=== PATIENT | female | born 1930 | race Caucasian/White ===

== ENCOUNTER 2017-07-04 14:26 | Inpatient (IN) | payer MEDICARE ==
[~2017-07-04] VITALS: Ht 167.6 cm; Wt 49.6 kg
[~2017-07-04 14:26] MED LIST: BRIM5DRO2 EACHEYE; CALC-500 PO; LATA2.5D3 EACHEYE; LEVO25TA4 PO; METO25TA35 PO; MULT-257 PO; POLY17PO3 PO; POTA99TA24 PO; WARF2TAB PO
[2017-07-04] MEDS ORDERED: LORazepam 2 MG/ML, 1ML ONE (14:32)
[2017-07-04 14:59] LABS: BASOPHILS # (AUTO) 0.02 x10^3/uL (0-0.1); BASOPHILS % (AUTO) 0 % (0-1); EOSINOPHILS # (AUTO) 0.01 x10^3/uL (0-0.4); EOSINOPHILS % (AUTO) 0 % (1-7); LYMPHOCYTES # (AUTO) 1.83 x10^3/uL (1-3.4); LYMPHOCYTES % (AUTO) 27 % (22-44); MD NO; MEAN CORPUSCULAR HEMOGLOBIN 27.8 pg (27.0-34.8); MEAN CORPUSCULAR HGB CONC 32.8 g/dL (32.4-35.8); MEAN CORPUSCULAR VOLUME 84.7 fL (80-100); MEAN PLATELET VOLUME 8.2 fL (7.4-10.4); MONOCYTES # (AUTO) 0.42 x10^3/uL (0.2-0.8); MONOCYTES % (AUTO) 6 % (2-9); NEUTROPHILS # (AUTO) 4.62 x10^3/uL (1.8-6.8); NEUTROPHILS % (AUTO) 67 % (42-75); PLATELET COUNT 234 x10^3/uL (130-400); RED BLOOD COUNT 5.05 x10^6/uL (3.82-5.3); RED CELL DISTRIBUTION WIDTH 19.2 % (9.6-15.2)
[2017-07-04] MEDS ORDERED: LORazepam 2 MG/ML, 1ML IVPush PRN (15:00)
[2017-07-04 15:10] LABS: INTERNATIONAL NORMALIZED RATIO 1.07 (0.93-1.1)
[2017-07-04] MEDS ORDERED: CALC1TAB PO (15:10)
[2017-07-04] MEDS ORDERED: APIX2.5T PO (15:11)
[2017-07-04 15:12] LABS: ALBUMIN 3.1 g/dL (3.4-5.0); ANION GAP 8 mmol/L (5-15); CALCIUM 9.1 mg/dL (8.5-10.1); CHLORIDE 108 mmol/L (98-107)
[2017-07-04] MEDS ORDERED: LACT-23 PO (15:12)
[2017-07-04 15:19] LABS: ALANINE AMINOTRANSFERASE 13 U/L (12-78); ALKALINE PHOSPHATASE 63 U/L (45-117); BILIRUBIN,TOTAL 0.8 mg/dL (0.2-1.0); CREATININE 0.76 mg/dL (0.55-1.02); TOTAL PROTEIN 7.6 g/dL (6.4-8.2); TROPONIN I < 0.015 ng/mL (0.000-0.045)
[2017-07-04] MEDS ORDERED: METO-282 PO (15:19)
[2017-07-04] MEDS ORDERED: POLY17PO5 PO (15:20)
[2017-07-04] MEDS ORDERED: MULT-308 PO (15:21)
[2017-07-04] MEDS ORDERED: BENZ-17 PO (15:55)
[2017-07-04] MEDS ORDERED: MECL12.52 PO (15:56)
[2017-07-04] MEDS ORDERED: OXYC-302 PO (15:57)
[2017-07-04] MEDS ORDERED: MAGN400O7 PO (15:57)
[2017-07-04] MEDS ORDERED: TEMA7.5C PO (15:59)
[2017-07-04] MEDS ORDERED: ACET325T14 PO (15:59)
[2017-07-04] MEDS ORDERED: ATROPINE 0.4 MG/ML, 1ML IVPush ONE (16:00)
[2017-07-04] MEDS ORDERED: SODIUM CHLORIDE 0.9% 1,000 ML IV SCH (16:35)
[2017-07-04] MEDS ORDERED: POLYETHYLENE GLYCOL 17 GM PACKET PO PRN (17:00)
[2017-07-04] MEDS ORDERED: BISACODYL 10 MG SUPP PR PRN (17:00)
[2017-07-04] MEDS ORDERED: DOCUSATE 100 MG CAPSULE PO PRN (17:00)
[2017-07-04] MEDS ORDERED: ACETAMINOPHEN 325 MG TABLET PO PRN (17:00)
[2017-07-04] MEDS ORDERED: ONDANSETRON 2MG/ML, 2ML IVPush PRN (17:00)
[2017-07-04] MEDS ORDERED: ONDANSETRON ODT 4 MG PO PRN (17:00)
[2017-07-04 17:34] LABS: THYROID STIMULATING HORMONE 2.55 mIU/L (0.358-3.740)
[2017-07-04 17:36] VITALS: BP 150/67
[2017-07-05] MEDS ORDERED: LORazepam 2 MG/ML, 1ML IVPush PRN (07:30)
[2017-07-05] MEDS ORDERED: SENNA/DOCUSATE TABLET PO SCH (09:00)
[2017-07-05] MEDS: MORPHINE SULFATE 4 MG/ML, 1ML IVPush PRN (11:41)
[2017-07-05] MEDS ORDERED: ATROPINE SYRINGE 0.1 MG/ML, 10ML ONE (14:00)
[2017-07-05] MEDS ORDERED: BISACODYL 10 MG SUPP PR PRN (22:30)
[2017-07-05] MEDS ORDERED: SENNA/DOCUSATE TABLET PO PRN (22:30)
[2017-07-05] MEDS ORDERED: DOCUSATE 50 MG/5 ML, 10ML UDC PO PRN (22:30)
[2017-07-05] MEDS ORDERED: POLYETHYLENE GLYCOL 17 GM PACKET NG PRN (22:30)
[2017-07-06] MEDS ORDERED: ONDANSETRON ODT 4 MG PO PRN (13:30)
[2017-07-06 15:04] VITALS: BP 145/67
[2017-07-07 08:05] VITALS: BP 111/65
[2017-07-07] MEDS: MORPHINE SULFATE 4 MG/ML, 1ML IVPush PRN (13:12)
[2017-07-08] MEDS: MORPHINE SULFATE 4 MG/ML, 1ML IVPush PRN (10:24)
== END 2017-07-08 13:20 | disposition hospice, home (50) | DRG 308 ==
LOC: ED 15:49 → EDIP 15:50 → ED 16:11 → 5SO 17:18 → 3NW 07-05 10:49
PROVIDERS: ADMIT Internal Medicine Pulmonary Disease; ATTEND Internal Medicine Pulmonary Disease
DX: I49.5 Sick sinus syndrome (principal); I46.9 Cardiac arrest, cause unspecified; R56.9 Unspecified convulsions; E44.0 Moderate protein-calorie malnutrition; D68.69 Other thrombophilia; I48.2 Chronic atrial fibrillation; F03.90 Unspecified dementia, unspecified severity, without behavioral disturbance, psychotic disturbance, mood disturbance, and anxiety; E03.9 Hypothyroidism, unspecified; Z88.8 Allergy status to other drugs, medicaments and biological substances; H40.9 Unspecified glaucoma; I10 Essential (primary) hypertension; I45.9 Conduction disorder, unspecified; I73.9 Peripheral vascular disease, unspecified; M81.0 Age-related osteoporosis without current pathological fracture; Z51.5 Encounter for palliative care; Z66 Do not resuscitate; Z79.01 Long term (current) use of anticoagulants; Z87.891 Personal history of nicotine dependence; Z90.710 Acquired absence of both cervix and uterus; Z90.49 Acquired absence of other specified parts of digestive tract; M19.90 Unspecified osteoarthritis, unspecified site
CPT/HCPCS: 36415; 70450; 71045; 80053; 83735; 84439; 84443; 84481; 84484; 85025; 85610; 85730; 87040; 93005; 96374; 96375; J0461; Q0162; J2060; J7030